=== PATIENT | female | born 1995 | race African-American/Black ===

== ENCOUNTER 2020-06-14 16:28 | Emergency (ER) | payer OTHER ==
[~2020-06-14] VITALS: Ht 152.4 cm; Wt 52.6 kg
[2020-06-14 16:49] VITALS: BP 110/63
[2020-06-14] MEDS ORDERED: Methocarbamol 500mg tab ORAL ONE (17:00)
[2020-06-14] MEDS ORDERED: Ketorolac 30mg Inj IM ONE (17:00)
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
[2020-06-14] MEDS ORDERED: IBUPROFEN600 M1 ORAL (18:21)
[2020-06-14] MEDS ORDERED: ROBAXIN-500MG ORAL (18:21)
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
[2020-06-14 18:29] VITALS: BP 113/62
== END 2020-06-14 18:30 | disposition home or self-care (01) ==
LOC: EMR 17:44
DX: S16.1XXA Strain of muscle, fascia and tendon at neck level, initial encounter (principal); S43.402A Unspecified sprain of left shoulder joint, initial encounter; S39.012A Strain of muscle, fascia and tendon of lower back, initial encounter; S00.93XA Contusion of unspecified part of head, initial encounter; J45.909 Unspecified asthma, uncomplicated; V43.52XA Car driver injured in collision with other type car in traffic accident, initial encounter; Y92.411 Interstate highway as the place of occurrence of the external cause; Z91.018 Allergy to other foods
CPT/HCPCS: 70450; 72125; 73030; 81025; 96372; J1885; Z7502; 99284